=== PATIENT | female | born 1945 | race Caucasian/White ===

== ENCOUNTER 2018-08-11 05:16 | Inpatient (IN) ==
--- NOTE | 2018-07-29 14:43 | EKG Report ---
Test Performed on : 07/29/2018 2:38:15 PM Test Reason : PAT Blood Pressure : / mmHG Vent. Rate : 087 BPM Atrial Rate : 087 BPM P-R Int : 152 ms QRS Dur : 086 ms QT Int : 380 ms P-R-T Axes : 064 -38 046 degrees QTc Int : 457 ms Normal sinus rhythm. Possible Left atrial enlargement Left axis deviation Possible Anterior infarct , age undetermined Abnormal ECG No previous ECGs available Confirmed by Marbella AGUILAR, Jose G Yeboah ([id number]) on 07/29/2018 5:57:21 PM
[2018-07-29 14:50] LABS: BASO# 0.03 X1000 (0.0-0.2); BASO% 0.4 % (0.0-0.8); EOS# 0.21 X1000 (0.0-0.7); HEMATOCRIT 45.1 % (37.0-47.0); HEMOGLOBIN 15.1 g/dL (12.0-16.0); LYMPH# 1.37 X1000 (1.2-3.4); LYMPH% 19.5 % (20.5-51.1); MCH 29.3 PG (27-31); MCHC 33.5 g/dL (33-37); MCV 87.4 FL (81-99); MONO# 0.49 X1000 (0.11-0.59); MPV 9.5 FL (7.4-10.4); NEUT# 4.91 X1000 (1.4-6.5); NEUT% 70.1 % (42.2-75.2); PLT 191 X1000 (130-400); RBC 5.16 XMIL (4.2-5.4); RDW 13.5 % (11.5-14.5); WBC 7.01 X1000 (4.8-10.8)
[2018-07-29 15:25] LABS: AGAP 13; BUN 16 mg/dL (8-22); CHLORIDE 108 mmol/L (98-107); COSMO 293; CREATININE 0.9 mg/dL (0.5-0.9); ESTIMATED GFR > 60; GLUCOSE 152 mg/dL (70-104); POTASSIUM 3.7 mmol/L (3.5-5.1); SODIUM 145 mmol/L (136-145); TCO2 24 mmol/L (25-35)
--- NOTE | 2018-08-09 11:03 | HISTORY AND PHYSICAL ---
DATE OF SURGERY: August 11, 2018. HISTORY: The patient is a 72-year-old female initially referred to me by Dr. Lauren Oreilly. The patient was having problems with recurrent pelvic organ prolapse, despite a prior sacral colpopexy that was performed without any type of graft and only sacral vaginal suturing. The patient was initially fitted with pessary on her day of initial visit. Because of the extent of the prolapse and her long drive, we were able to place a 3 inch Gellhorn, which we have been using over the last 10 months. However, the patient at this point is now very frustrated. She is having incontinence related to the apical support of the prolapse, and she is wishing to proceed to surgical intervention. The risks and benefits of colpectomy were explained at length. We also discussed placement of mid urethral sling. She understands and is wishing to proceed to surgical intervention. PAST MEDICAL HISTORY: Positive for hypertension, macular degeneration, and glaucoma. PRIOR SURGICAL HISTORY: Positive for abdominal hysterectomy, cataract surgery, D and C of the uterus, and an abdominal sacrocolpopexy using sutures only. She is noted to be a para 1-0-0-1. ALLERGIES: Bextra, Lodine, Claritin. MEDICATIONS: Currently are Lumigan ophthalmic solution, estradiol 1 mg, omeprazole 40, lisinopril 10. SOCIAL HISTORY: Negative for tobacco, ETOH, or drugs. FAMILY HISTORY: Noncontributory. PHYSICAL EXAMINATION: GENERAL: BMI is 24. HEENT: Normocephalic, atraumatic. PERRLA. EOMI. No thyromegaly. CV: Regular rate and rhythm without murmur, gallop, or rub. PULMONARY: Clear to auscultation and percussion. ABDOMEN: Soft. : Shows POP-Q stage IV prolapse with most of it being apical and anterior. Her continence that she was having on initial visit was related to reverse kinking of the urethra. The leading edge was +6. NEURO: Was afocal. ASSESSMENT AND PLAN: The patient with advanced stage prolapse, who is admitted at this time for an obliterative procedure and mid urethral sling. The risks and benefits were discussed. She understands and is wishing to proceed. cc: Bernrado Seymour MD
[2018-08-11] MEDS ORDERED: KEFZOL 1 GM/D5W 1 GM/50 ML IVPB ONE (05:34)
[2018-08-11] MEDS ORDERED: LR 1,000 ML ONE (05:34)
[2018-08-11] MEDS ORDERED: METROGEL-VAGINAL 0.75% GEL ONE (06:22)
[2018-08-11] MEDS ORDERED: SODIUM CHLORIDE 0.9% ONE (06:22)
[2018-08-11] MEDS ORDERED: SENSORCAINE 0.5%-EPI 1:200,000 ONE (06:22)
[2018-08-11] MEDS ORDERED: D10W 500 ML ONE (06:23)
[2018-08-11] MEDS ORDERED: XYLOCAINE-MPF 2% ONE (06:37)
[2018-08-11] MEDS ORDERED: DIPRIVAN 1% ONE (06:37)
--- NOTE | 2018-08-11 06:41 | H&P REVIEW ---
H&P Update H&P Review: H&P was reviewed and patient was examined, No change has occurred in the patient's condition
[2018-08-11] MEDS ORDERED: DECADRON ONE (07:20)
[2018-08-11] MEDS ORDERED: TORADOL ONE (07:20)
[2018-08-11] MEDS ORDERED: ZOFRAN ONE (07:20)
[2018-08-11] MEDS ORDERED: LASIX ONE (08:01)
[2018-08-11] MEDS: MORPHINE ONE ×4 (09:01→09:11)
--- NOTE | 2018-08-11 09:41 | OPERATIVE NOTE ---
PROCEDURE DATE: 08/11/2017 PREOPERATIVE DIAGNOSIS: Pop Q stage 4 pelvic organ prolapse. POSTOPERATIVE DIAGNOSIS: Pop Q stage 4 pelvic organ prolapse. PROCEDURE: Colpectomy and mid urethral sling with Obtryx. SURGEON: Dr. Bernardo Seymour. ANESTHESIA: General. ESTIMATED BLOOD LOSS: 50 mL. HISTORY: The patient is a 72-year-old female who had a prior sacrocolpopexy performed by a physician in another area. Upon review of that operative report, the suspension was performed primarily with sutures with no evidence of any graft material being utilized. However, she has now had a recurrence of her prolapse, and we have been managing her with Gellhorn pessary for the last 9 months. She was wishing to proceed to surgical intervention. OPERATIVE FINDINGS: Stage 4 pelvic organ prolapse with banding noted especially in the angles at the apex. She was found to have a normal bladder after completion of the procedure with efflux of urine from both ureters. No other abnormalities. OPERATIVE PROCEDURE: The patient taken to the operating room and placed in the supine position. After adequate general anesthesia obtained, she was [facility]. The vagina and perineum prepped and draped in the usual fashion. At this time, Allis clamps were utilized to identify the large defect at the apex; however, because of the prior procedure, the actual apex was only a 0, but the remaining measurements were all +4 to +5 in both anterior and posterior compartments. After identification and grasping the angles with Allis clamps, we then began injecting the anterior compartment with 0.25% Marcaine with epinephrine, diluted 50% with normal saline. We injected approximately 50 mL of this solution for hydrodissection of the anterior compartment, doing it in a submucosal/intramucosal fashion. Upon doing this, we then began dissecting the anterior compartment. We removed it in approximately 3 to 4 large pieces, starting right at the urethrovesical neck and extending all the way to the apex. We then turned our attention towards the posterior compartment in a similar fashion and did the hydrodissection with the same anesthetic solution. We then removed in 2 large pieces of the posterior compartment vaginal mucosa all the way down to the perineal body. At this time, we began with our reconstruction portion of the surgery using interrupted sutures with 2.0 Vicryl ligature. We did pursestring closure starting at the apex. We did have some area of bleeding in both angles. We had used electrocautery in these areas to provide hemostasis of the vaginal mucosa at the sites. After doing the continued pursestring sutures, we had complete involution of the defect, and it left this only with anterior and posterior portion of vaginal mucosa remaining. This was closed with interrupted [id number] sutures using 0 Vicryl ligature. After completion of this, we then turned our attention towards placement of the sling. The urethra was grasped proximally and distally with Allis clamps and approximately 8 to 10 mL of the same dilution was injected in a periurethral fashion for hydrodissection. A sagittal incision was made, and we dissected up towards the ischial pubic ramus on each side at approximately 10 o'clock and 2 o'clock position. Based on the landmarks of the pubic ramus as well as the insertion of the adductor longus, a stab incision was initially made on the left-hand side. A halo device was introduced through that incision to the electron microprobe operator's finger, which had been in place been placed in the mid urethral position. This directed the needle out. The mesh was attached to it and was retracted back through the skin. This was performed on a contralateral side in a similar fashion. At this time, we then introduced a cystoscope and drained all urine out of the bladder. We then filled the bladder with D10. Both ureters were effluxing urine and found to be within normal limits, and there was no abnormalities within the bladder. I could see some type of retropubic cyst of some nature that was impinging on the dome of the bladder, and I suspicion this is probably related to her prior surgery with some type of inclusion cyst or something underneath the mucosa in that vesicovaginal space/retropubic space. Upon completion of this, the cystoscope was removed and a Jolie clamp was placed in the mid urethral position. The tape was brought out the Jolie clamp. Blue tag was excised. The sheaths were easily removed. There was no tension on the mesh whatsoever. The mid urethral incision was closed with a running 2.0 Vicryl ligature. There was no evidence of any penetration of the needle or mesh through the vaginal mucosa. Sponge count, needle counts correct x3. Packs and drains were Blanco. Patient was awakened and taken to the recovery room with vital signs stable. cc: Bernardo Seymour MD
[2018-08-11] MEDS: NORCO-5 PO PRN ×2 (13:10→20:23)
[2018-08-11] MEDS: LR 1,000 ML IV SCH ×2 (16:22→20:24)
[2018-08-11] MEDS: TORADOL IV SCH (16:22)
--- NOTE | 2018-08-11 19:33 | PROGRESS NOTE ---
DATE: 08/11/2018 DATE AND TIME: Date is 08/11/2018, time is approximately 5 p.m. SUBJECTIVE: Patient is alert and oriented x 3, sitting in the bed with her family present. OBJECTIVE: Vital Signs: She is afebrile. Vital signs are stable. Urine output has been adequate. ASSESSMENT AND PLAN: Routine postoperative care. She will undergo voiding trial in the morning and we will plan on discharge home after completion of the voiding trial. cc: Bernardo Seymour MD
[2018-08-11] MEDS: COLACE PO SCH (20:24)
[2018-08-11] MEDS: PERIDEX MT SCH (20:24)
[2018-08-11] MEDS: COSOPT OPHTH SOLN BOTH EYES SCH (20:25)
[2018-08-12] MEDS: TORADOL IV SCH ×2 (00:03→09:13)
[2018-08-12] MEDS: LR 1,000 ML IV SCH (04:18)
[2018-08-12 05:34] LABS: URINE SOURCE CATH
[2018-08-12 05:37] LABS: BILIRUBIN URINE NEGATIVE (NEGATIVE); BLOOD URINE TRACE (NEGATIVE); COLOR YELLOW; GLUCOSE URINE NEGATIVE (NEGATIVE); KETONE URINE NEGATIVE (NEGATIVE); LEUKOCYTES URINE TRACE (NEGATIVE); NITRITE URINE NEGATIVE (NEGATIVE); PROTEIN URINE NEGATIVE (NEGATIVE); SP GRAVITY URINE 1.016; TURBIDITY URINE CLEAR (CLEAR); UROBILINOGEN URINE NORMAL (NORMAL)
[2018-08-12 05:39] LABS: UR EPITHELIAL CELLS <10 /HPF (<10); URINE BACTERIA NEGATIVE /HPF; URINE RBC <10 /HPF (<10); URINE WBC <10 /HPF (<10)
[2018-08-12] MEDS: PRILOSEC PO SCH ×2 (05:50→09:17)
[2018-08-12] MEDS: NORCO-5 PO PRN (05:50)
--- NOTE | 2018-08-12 07:04 | DISCHARGE SUMMARY ---
ADMISSION DATE: 08/11/2018 DISCHARGE DATE: 08/12/2018 PRINCIPAL DIAGNOSIS: Pelvic organ prolapse. PROCEDURE: Colpectomy and mid urethral sling with Obtryx. HISTORY: The patient is a 72-year-old female who has been followed by Dr. Lauren Oreilly in the [facility], who was having recurrent pelvic organ prolapse after abdominal sacrocolpopexy. The patient had been managed over the last 9 months with a pessary, and has decided she wished to proceed with surgical intervention. HOSPITAL COURSE: The patient underwent the above-stated procedure. Blood loss at that time was approximately 50 mL. The patient's postoperative course has been uncomplicated. She has already undergone a voiding trial, and was able to void 300 mL with minimal residual. She is being discharged home with instructions for followup in 3 weeks. DISCHARGE MEDICATIONS: [place] and Colace. She was instructed on regular diet and decreased activity. cc: Bernardo Seymour MD
[2018-08-12 07:33] VITALS: BP 134/58
[2018-08-12] MEDS ORDERED: ZYRTEC PO SCH (09:00)
[2018-08-12] MEDS ORDERED: LUMIGAN 0.01% OPH SOLUTION BOTH EYES SCH (09:00)
[2018-08-12] MEDS ORDERED: PRINIVIL PO SCH (09:00)
[2018-08-12] MEDS: PERIDEX MT SCH (09:16)
[2018-08-12] MEDS: COLACE PO SCH (09:16)
[2018-08-12] MEDS: COSOPT OPHTH SOLN BOTH EYES SCH (09:19)
== END 2018-08-12 09:45 | disposition home or self-care (01) | DRG 748 ==
LOC: SURHOLD 05:16 → 4N 09:01
PROVIDERS: ADMIT Obstetrics & Gynecology; ATTEND Obstetrics & Gynecology
PROC: GY.CYST (2018-08-11 06:57)
CPT/HCPCS: 80048; 81001; 85025; 87088; 88300; 88304; 93005; 93010; 94799; A9270; C1771; J0690; J1100; J1885; J1940; J2270; J2405; J7120